=== PATIENT | male | born 1965 | race Caucasian/White ===

== ENCOUNTER 2017-11-18 06:31 | Emergency (ER) | payer OTHER ==
[~2017-11-18] VITALS: Ht 177.8 cm; Wt 125.3 kg
[2017-11-18 06:36] VITALS: BP 114/74; Ht 177.8 cm; Wt 125.3 kg
[2017-11-18 07:15] LABS: CALCIUM 9.8 mg/dL (8.5-10.1); CHLORIDE SERUM 102 mmol/L (98-107); GLUCOSE SERUM 79 mg/dL (74-106); SODIUM SERUM 139 mmol/L (136-145)
[2017-11-18 07:20] LABS: ALBUMIN 3.8 g/dL (3.4-5.0); ALKALINE PHOSPHATASE 87 U/L (46-116); ALT/SGPT 82 U/L (16-63); AMYLASE 27 U/L (25-115); AST/SGOT 51 U/L (15-37); BILIRUBIN TOTAL 0.83 mg/dL (0.20-1.00); LIPASE 120 IU/L (73-393)
[2017-11-18 07:22] LABS: TOTAL PROTEIN, SERUM 8.4 g/dL (6.4-8.2)
[2017-11-18 07:25] LABS: CREATININE SERUM 1.2 mg/dL (0.7-1.3); GFR1 > 60 mL/min
[2017-11-18 07:36] LABS: BASOPHIL % 0.3 % (0-2); PLATELET COUNT 266 x10^3mcL (130-400); RED CELL DISTRIBUTION WIDTH 13.5 % (11.5-14.5)
== END 2017-11-18 07:30 | disposition left against medical advice (07) ==
LOC: ED 06:31
PROVIDERS: Emergency Medicine
DX: R10.10 Upper abdominal pain, unspecified (principal); F41.9 Anxiety disorder, unspecified; J45.909 Unspecified asthma, uncomplicated; Z88.0 Allergy status to penicillin
CPT/HCPCS: 36415; 83880